=== PATIENT | female | born 1930 | race Caucasian/White ===

== ENCOUNTER 2018-10-07 14:33 | Inpatient (IN) ==
[2018-10-07] MEDS ORDERED: SODIUM CHLORIDE 0.9% 1,000 ML IV STA (15:25)
[2018-10-07 15:37] LABS: Basophils % 0.3 % (0.0-0.8); Eosinophils % 0.1 % (0.00-10.9); Hematocrit 41.3 VOL% (35.7-47.0); Hemoglobin 13.3 GM/DL (12.0-16.0); Immature Granulocytes % 0.6 %; Immature Granulocytes Absolute 0.06 #; Lymphocytes # 0.6 10*3/uL (1.4-4.0); Lymphocytes % 6.2 % (21.3-54.2); Mean Corpuscular HGB Conc 32.2 GM/DL (32-36); Mean Corpuscular Volume 94.1 FL (87-102); Mean Platelet Volume 11.7 FL (9.6-12.0); Monocytes % 6.3 % (1.7-12.7); Neutrophils % 86.5 % (38.7-73.9); Platelet Count 123 T/CUMM (130-400); Red Blood Count 4.39 MC/CUMM (3.8-5.5); Red Cell Distribution Width 13.2 % (9.3-17.3); White Blood Count 10.1 T/CUMM (4-12)
[2018-10-07 15:43] LABS: INR 1.1; PT Patient Result 12.2 SECS
[2018-10-07 15:50] LABS: Alanine Aminotransferase < 9 U/L (13-56); Alkaline Phosphatase 78 U/L (45-117); Aspartate Amino Transferase 11 U/L (0-37); Blood Urea Nitrogen 19 MG/DL (7-18); Calcium 8.4 MG/DL (8.5-10.1); Glucose 131 MG/DL (74-106); Total Protein 6.1 G/DL (6.4-8.3)
[2018-10-07 16:24] LABS: Apearance,Urine CLOUDY (Clear); Bacteria,Urine Many /HPF (Few); Bilirubin,Urine Negative (Negative); Blood, Urine Small mg/dL (Negative); Glucose,Urine (UA) Negative (Negative); Hyaline Casts,Urine 37 /LPF (0-3); Ketones,Urine 5 mg/dL (Negative); Mucus,Urine Few /LPF (Occasional); Nitrite,Urine Negative (Negative); Protein,Urine Negative; RBC,Urine 2 /HPF (0-4); Urine Color Yellow (Yellow); Urine Specific Gravity 1.011 (1.001-1.035); Urine Urobilinogen < 2.0 EU/DL (0.2-1.0); WBC,Urine 200 /HPF (0-6)
[2018-10-07] MEDS ORDERED: cefTRIAXone 1,000 MG in SODIUM CHLORIDE 0.9% 100 ML IV STA (16:49)
[2018-10-07] MEDS ORDERED: ACETAMINOPHEN 325 MG TABLET PO PRN (18:07)
[2018-10-07] MEDS ORDERED: ONDANSETRON 4 MG/2 ML VIAL IV PRN (18:07)
[2018-10-07] MEDS ORDERED: ALBUTEROL 2.5 MG/3 ML NEB RESP TX PRN (18:30)
[2018-10-07] MEDS ORDERED: SODIUM CHLORIDE 0.45% 1,000 ML IV SCH (19:30)
[2018-10-07 20:50] LABS: Troponin I < 0.015 NG/ML (0.00-0.045)
[2018-10-07] MEDS ORDERED: DONEPEZIL 10 MG TABLET PO SCH (21:00)
[2018-10-07] MEDS: ENOXAPARIN 30 MG/0.3 ML SYRINGE SUBCUT SCH (22:06)
[2018-10-07] MEDS: MEROPENEM 1,000 MG in SODIUM CHLORIDE 0.9% 100 ML IV SCH (22:06)
[2018-10-07] MEDS: CARBIDOPA/LEVODOPA 25-100 MG TABLET PO SCH (22:07)
[2018-10-07] MEDS: CHOLECALCIFEROL 5,000 UNIT TABLET PO SCH (22:07)
[2018-10-07] MEDS: POTASSIUM CHLORIDE 20 MEQ TABLET PO PRN (23:23)
[2018-10-08] MEDS: POTASSIUM CHLORIDE 20 MEQ TABLET PO PRN ×3 (01:39→06:39)
[2018-10-08 03:39] LABS: Basophils % 0.2 % (0.0-0.8); Eosinophils % 0.5 % (0.00-10.9); Hematocrit 36.4 VOL% (35.7-47.0); Hemoglobin 11.9 GM/DL (12.0-16.0); Immature Granulocytes % 0.5 %; Immature Granulocytes Absolute 0.04 #; Lymphocytes # 1.4 10*3/uL (1.4-4.0); Lymphocytes % 16.6 % (21.3-54.2); Mean Corpuscular HGB Conc 32.7 GM/DL (32-36); Mean Corpuscular Volume 92.4 FL (87-102); Mean Platelet Volume 12.1 FL (9.6-12.0); Monocytes % 7.9 % (1.7-12.7); Neutrophils % 74.3 % (38.7-73.9); Platelet Count 104 T/CUMM (130-400); Red Blood Count 3.94 MC/CUMM (3.8-5.5); White Blood Count 8.2 T/CUMM (4-12)
[2018-10-08 04:09] LABS: Calcium 8.1 MG/DL (8.5-10.1); Risk Ratio 2.55; Thyroid Stimulating Hormone 0.834 uIU/ml (0.358-3.74); VLDL CHOLESTEROL 30.2 MG/DL
[2018-10-08 04:23] LABS: Troponin I 0.018 NG/ML (0.00-0.045)
[2018-10-08] MEDS: MEROPENEM 1,000 MG in SODIUM CHLORIDE 0.9% 100 ML IV SCH ×2 (06:39→19:00)
[2018-10-08] MEDS ORDERED: POTASSIUM CHLORIDE 20 MEQ TABLET PO ONE (08:18)
[2018-10-08] MEDS ORDERED: SIMVASTATIN 10 MG TABLET PO SCH (09:00)
[2018-10-08] MEDS ORDERED: MELOXICAM 7.5 MG TABLET PO SCH (09:00)
[2018-10-08] MEDS: ASPIRIN 325 MG TABLET PO SCH (09:25)
[2018-10-08] MEDS: CARBIDOPA/LEVODOPA 25-100 MG TABLET PO SCH ×3 (09:25→21:40)
[2018-10-08] MEDS: POTASSIUM CHLORIDE 8 MEQ CAPSULE PO SCH (09:26)
[2018-10-08] MEDS: FERROUS SULFATE 325 MG TABLET PO SCH (09:26)
[2018-10-08] MEDS: amLODIPine 10 MG TABLET PO SCH (09:26)
[2018-10-08] MEDS ORDERED: MAGNESIUM SULF RIDER 2 GM in PREMIX 1 EACH IV PRN (13:31)
[2018-10-08] MEDS ORDERED: MAGNESIUM SULF RIDER 4 GM in PREMIX 1 EACH IV PRN (13:31)
[2018-10-08] MEDS: ENOXAPARIN 30 MG/0.3 ML SYRINGE SUBCUT SCH (18:16)
[2018-10-08] MEDS: CHOLECALCIFEROL 5,000 UNIT TABLET PO SCH (21:40)
[2018-10-09 05:23] LABS: Basophils % 0.3 % (0.0-0.8); Eosinophils # 0.1 10*3/uL (0.0-0.87); Hemoglobin 11.8 GM/DL (12.0-16.0); Immature Granulocytes Absolute 0.06 #; Lymphocytes # 0.7 10*3/uL (1.4-4.0); Lymphocytes % 11.7 % (21.3-54.2); Mean Corpuscular HGB Conc 32.8 GM/DL (32-36); Mean Corpuscular Volume 93.5 FL (87-102); Mean Platelet Volume 11.2 FL (9.6-12.0); Monocytes % 10.2 % (1.7-12.7); Neutrophils % 75.8 % (38.7-73.9); Red Blood Count 3.85 MC/CUMM (3.8-5.5); Red Cell Distribution Width 13.2 % (9.3-17.3); White Blood Count 6.1 T/CUMM (4-12)
[2018-10-09 05:37] LABS: Calcium 8.8 MG/DL (8.5-10.1); Osmolality,Calculated 276.4 MOS/KG (273-304)
[2018-10-09 05:50] LABS: Platelet Count 91 T/CUMM (130-400)
[2018-10-09] MEDS: MEROPENEM 1,000 MG in SODIUM CHLORIDE 0.9% 100 ML IV SCH (06:04)
[2018-10-09 06:22] LABS: Ovalocytes Few
[2018-10-09 06:23] LABS: Anisocytosis Slight; Platelet Estimate Decreased; Poikilocytosis Slight; Tear Drop Cells Slight
[2018-10-09 06:24] LABS: Polychromasia Slight
[2018-10-09] MEDS: CARBIDOPA/LEVODOPA 25-100 MG TABLET PO SCH (08:04)
[2018-10-09] MEDS: FERROUS SULFATE 325 MG TABLET PO SCH (08:04)
[2018-10-09] MEDS: ASPIRIN 325 MG TABLET PO SCH (08:04)
[2018-10-09] MEDS: amLODIPine 10 MG TABLET PO SCH (08:04)
[2018-10-09] MEDS: POTASSIUM CHLORIDE 8 MEQ CAPSULE PO SCH (08:05)
[2018-10-09 12:21] VITALS: BP 138/74
[2018-10-09] MEDS ORDERED: SIMVASTATIN 10 MG TABLET PO SCH (21:00)
== END 2018-10-09 15:33 | disposition home health service (06) | DRG 309 ==
LOC: EDUNIT# → EDBD → N.ED 14:33 → N.TELEN 16:50
PROVIDERS: ADMIT Internal Medicine; ATTEND Internal Medicine